=== PATIENT | female | born 1940 | race Caucasian/White ===

== ENCOUNTER → 2021-05-25 | Outpatient (CLI) | payer MEDICARE, OTHER ==
[~2021-05-25] MED LIST: ACETAMINOPHEN-1 EAC1 PO; ASPIRIN81 M2 PO; ATENOLOL 50MG T50 M1 PO; AUGMENTIN 875875 MG PO; B-COMPLEX-VITA1 EACH PO; BACTRIM DS TAB1 EACH PO; CARAFATE 1 GM TA1 G1 GT; CELEXA40 MG PO; CIPRO500 MG PO; CLONAZEPAM 1 MG1 M1 PO; DITROPAN XL5 M1 PO; ELIQUIS5 MG PO; ESTRACE0.5 MG PO; FLAXSEED OIL1000 MG PO; HYDROXYZINE HCL25 M1 GT; HYDROXYZINE HCL25 M2; HYOSCYAMIN125 MCG/5 SUBLING; HYOSCYAMINE0.125 MG PO; IMDUR 30 MG TAB30 M1 PO; IMDUR 60 MG TAB60 MG PO; LASIX 40 MG TAB40 M1 PO; LIALDA1.2 GM; MIRAPEX0.25 MG PO; MORPHINE SULFAT15 M3 PO; MS CONTIN15 MG PO; MULTIVITAMINS1 EAC7 PO; NEURONTIN 300300 M1 PO; NITROGLYCERIN0.4 MG SUBLING; PHENAZOPYRIDIN200 M2 PO; PREDNISONE 10 M10 MG PO; PREMARIN VAGI42.5 G1 TOP; PREMARIN0.45 MG PO; PRILOSEC 20 MG20 MG PO; PRILOSEC40 MG PO; PRINIVIL20 MG PO; PRINIVIL40 MG PO; PROZAC 20 MG20 M1 PO; REQUIP 1 MG TABL1 M1 PO; TRIAMTERENE-HC1 EAC1 PO; TURMERIC500 MG PO; VITAMIN B-650 M1 PO
== END ==
LOC: M.CT 12:00
PROVIDERS: ATTEND Family Medicine
DX: J90 Pleural effusion, not elsewhere classified (principal); I25.10 Atherosclerotic heart disease of native coronary artery without angina pectoris; N28.1 Cyst of kidney, acquired; R91.1 Solitary pulmonary nodule; Z90.2 Acquired absence of lung [part of]